=== PATIENT | female | born 1995 | race Caucasian/White ===

== ENCOUNTER 2023-03-17 07:59 | Outpatient (OUT) | payer OTHER, SELFPAY ==
--- NOTE | 2023-03-17 08:26 | CT_ITS ---
[address] [address] Patient Name: TONNY DOWELL MRN: [id number] date: 1995 Sex: F Assigned Patient Location: CT Current Patient Location: CT Accession/Order Number: [id number] Exam Date: 03/17/2023 08:20 Report Date: 03/17/2023 08:53 At the request of: WIL ESCOBAR Procedure: CT cervical spine wo con EXAM: CT cervical spine wo con CLINICAL INDICATION: Cervical Pain M54.2 COMPARISON: None TECHNIQUE: Axial CT images of the cervical spine were obtained without intravenous contrast. Coronal and sagittal reformatted images were also reviewed. Dose reduction techniques were achieved by using automated exposure control and/or adjustment of mA and/or kV according to patient size and/or use of iterative reconstruction technique. FINDINGS: Trauma: No fracture, traumatic malalignment, facet dislocation, or discrete epidural hemorrhage. Alignment: Normal craniocervical and cervicothoracic junctions. Straightening of the physiologic cervical lordosis likely relates at least in part to patient positioning. Vertebral Body Heights: Maintained. Spondylotic Changes: No substantial spondylotic changes. Soft Tissues: Normal. 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 Clear visualized lung apices. Airway is patent. CT/CT cervical spine wo con IMPRESSION: No acute osseous abnormalities in the cervical spine. Electronically authenticated by: ANKUR LEUNG Date: 03/17/2023 08:53
== END 2023-03-17 08:00 | disposition home or self-care (01) ==
LOC: CT 07:59
PROVIDERS: Family Provider Family Medicine; PCP Family Medicine; Visit Provider Family Medicine
DX: M54.2 Cervicalgia (principal)
CPT/HCPCS: 72125

== ENCOUNTER 2023-05-23 10:28 | Emergency (ER) | payer OTHER, SELFPAY ==
--- OUTSIDE RECORDS SUMMARY | 2023-05-23 10:36 | XMS_ITS | CCD ---
Author Name Unknown Address [facility] [place] [id number] Organization [facility] Care Team Providers Care Alcohol Rubber Name Role Phone DAVID MANZANARES Referring Unavailable DAVID MANZANARES Primary Care Unavailable PRATIK HARTMAN Referring Unavailable DAVID MANZANARES Primary Care Unavailable WIL ESCOBAR Admitting Unavailable WIL ESCOBAR Attending Unavailable ADOLFO MENDES Consulting Unavailable WIL ESCOBAR Consulting Unavailable Problems Active Problems Problem Classification Problem Date Documented Da te Episodic/Chronic Nonspecific chest pain (4 sources) Other chest pain; Translations: [OTHER CHEST PAIN] Onset: 12-10-2018 Episodic Other upper respiratory disease (2 sources) Epistaxis; Translations: [Epistaxis] Onset: 06-17-2018 Episodic Past or Other Problems Problem Classification Problem Date Documented Da te Episodic/Chronic Malaise and fatigue (2 sources) Other fatigue; Translations: [Other fatigue] Onset: 03-04-2018 Episodic Results Test Name Value Interpretation Reference Range Facil ity XR CHEST 2 Von 12-10-2018 XR CHEST 2 V Patient: TONNY DOWELL Exam Date: 12/10/2018 : 1995 Gender:F Ordering : DR WIL ESCOBAR M.D. Admission #: [id number] Family : Order #: [id number] CLICK HERE TO VIEW EXAM RADIOLOGY REPORT PROCEDURE: RADIOGRAPH CHEST 2 VIEWS COMPARISON: XR CHEST 2 V, 04/11/2015. INDICATIONS: Acute chest pain FINDINGS: LUNGS: No significant pulmonary parenchymal abnormalities. VASCULATURE: No increased pulmonary vasculature. PLEURA: No pneumothorax, effusion, or pleural thickening. CARDIAC: No cardiomegaly or cardiac silhouette abnormality. MEDIASTINUM: No visible mass or adenopathy. BONES: No fracture or visible bone lesion. OTHER: Negative. CONCLUSION: Normal examination. No significant change has occurred. Dictated by: Adolfo Mendes M.D. on 12/10/2018 at 12:33 Approved by: Adolfo Mendes M.D. on 12/10/2018 at 12:35 Normal [facility] APTTon 06-17-2018 aPTT Coag time (Bld) 27.1 s Normal 21.3-31.3 [facility] Comment on above: Performed By: #### P T, PTT #### [facility] [address] [place] [id number] Worship Director: Paxton Lima MD #### PFA #### [address] [address] Worship Director: Armando Helm MD PTon 06-17-2018 INR Coag RelTime (PPP) 1.0 {INR} Normal [facility] Comment on above: Result Comment: Therapeutic Range: Moderate Anticoagulant Intensity: INR = 2.0-3.0 High Anticoagulant Intensity: INR = 2.5-3.5 Performed By: #### P T, PTT #### [facility] [address] [place] [address] Worship Director: Paxton Lima MD #### PFA #### [place] [phone] Worship Director: Armando Helm MD Prothrombin time (PT) Coag time (PPP) 10.0 s Normal 9.4-12.6 [facility] Comment on above: Performed By: #### P T, PTT #### [facility] [address] [place] [address] Worship Director: Paxton Lima MD #### PFA #### [address] [address] Worship Director: Armando Helm MD Platelet Functionon 06-17-19 19 Collagen/ADP 95 sec Normal 67-112 [facility] Comment on above: Performed By: #### P T, PTT #### [facility] [address] [place] [phone] Worship Director: Paxton Lima MD #### PFA #### [address] [phone] Worship Director: Armando Helm MD Collagen/EPI 122 sec Normal 85-172 [facility] Comment on above: Performed By: #### P T, PTT #### [facility] [address] [place] [address] Worship Director: Paxton Lima MD #### PFA #### [place] [address] Worship Director: Armando Helm MD Interpretation Normal platelet function. If patient clinical history/Physical examination is Normal [facility] Comment on above: Result Comment: posi tive for a bleeding diathesis, recommend repeat testing and/or additional primary hemostasis and/or coagulation studies. PFA results on patients treated with Plavix (clopidogrel) have not been established. Performed By: #### P T, PTT #### [facility] [address] [place] [address] Worship Director: Paxton Lima MD #### PFA #### [address] [address] Worship Director: Armando Helm MD CBC with Diffon 03-04-2018 Abs. Basophil 0.04 k/uL Normal 0.00-0.20 [facility] Comment on above: Performed By: #### C DP, GLUF, TSH #### [address] [address] Abs.Imm.Granulocyte 0.04 k/uL Normal 0.00-0.30 [facility] Comment on above: Performed By: #### C DP, GLUF, TSH #### [facility] [address] [place] [address] Abs.Neutrophil (Seg) 4.48 k/uL Normal 1.80-8.00 [facility] Comment on above: Performed By: #### C DP, GLUF, TSH #### [address] [address] Basophils/100 WBC (Bld) 1 % Normal 0-2 [facility] Comment on above: Performed By: #### C DP, GLUF, TSH #### [address] [address] Eosinophils #/vol (Bld) 0.15 10*3/uL Normal 0.00-0.44 [facility] Comment on above: Performed By: #### C DP, GLUF, TSH #### [address] [address] Eosinophils/100 WBC (Bld) 2 % Normal 1-4 [facility] Comment on above: Performed By: #### C DP, GLUF, TSH #### [address] [address] Erythrocyte distribution width Ratio (RBC) 13.0 % Normal 11.8-14.4 [facility] Comment on above: Performed By: #### C DP, GLUF, TSH #### [facility] [address] [place] [address] Hematocrit Volume Fraction (Bld) 43.0 % Normal 36.3-47.1 [facility] Comment on above: Performed By: #### C DP, GLUF, TSH #### [facility] [address] [place] [address] Hemoglobin mass conc (Bld) 13.3 g/dL Normal 11.9-15.1 [facility] Comment on above: Performed By: #### C DP, GLUF, TSH #### [address] [address] Immature granulocytes #/vol (Bld) 1 % High 0 [facility] Comment on above: Performed By: #### C DP, GLUF, TSH #### [address] [address] Lymphocytes #/vol (Bld) 2.07 10*3/uL Normal 1.20-5.20 [facility] Comment on above: Performed By: #### C DP, GLUF, TSH #### [address] [address] Lymphocytes/100 WBC (Bld) 28 % Normal 25-45 [facility] Comment on above: Performed By: #### C DP, GLUF, TSH #### [address] [address] MCH Entitic mass (RBC) 27.8 pg Normal 25.2-33.5 [facility] Comment on above: Performed By: #### C DP, GLUF, TSH #### [address] [address] MCHC mass conc (RBC) 30.9 g/dL Normal 28.4-34.8 [facility] Comment on above: Performed By: #### C DP, GLUF, TSH #### [address] [address] MCV Entitic volume (RBC) 90.0 fL Normal 82.6-102.9 [facility] Comment on above: Performed By: #### C DP, GLUF, TSH #### [address] [address] Monocytes #/vol (Bld) 0.59 10*3/uL Normal 0.10-1.40 [facility] Comment on above: Performed By: #### C DP, GLUF, TSH #### [address] [address] Monocytes/100 WBC (Bld) 8 % Normal 2-8 [facility] Comment on above: Performed By: #### C DP, GLUF, TSH #### [address] [address] Neutrophil (Seg) 60 % Normal 34-64 [facility] Comment on above: Performed By: #### C DP, GLUF, TSH #### [address] [address] NRBC Automated 0.0 per 100 WBC Normal 0.0 [facility] Comment on above: Performed By: #### C DP, GLUF, TSH #### [address] [address] Platelet mean volume Entitic volume (Bld) 9.2 fL Normal 8.1-13.5 [facility] Comment on above: Performed By: #### C DP, GLUF, TSH #### [address] [address] Platelets #/vol (Bld) 342 10*3/uL Normal 138-453 [facility] Comment on above: Performed By: #### C DP, GLUF, TSH #### [address] [address] RBC #/vol (Bld) 4.78 10*6/uL Normal 3.95-5.11 [facility] Comment on above: Performed By: #### C DP, GLUF, TSH #### [address] [address] WBC #/vol (Bld) 7.4 10*3/uL Normal 4.5-13.5 [facility] Comment on above: Performed By: #### C DP, GLUF, TSH #### [address] [address] Auto Diff Performed NOT REPORTED Normal [facility] Comment on above: Performed By: #### C DP, GLUF, TSH #### [address] [address] Platelets #/vol (Bld) NOT REPORTED Normal [facility] Comment on above: Performed By: #### C DP, GLUF, TSH #### [address] [address] RBC morphology finding Nom (Bld) NOT REPORTED Normal [facility] Comment on above: Performed By: #### C DP, GLUF, TSH #### [address] [address] WBC Morphology NOT REPORTED Normal [facility] Comment on above: Performed By: #### C DP, GLUF, TSH #### [address] [address] Glucose, Fastingon 8 Glucose mass conc 85 mg/dL Normal 70-99 [facility] Comment on above: Performed By: #### C DP, GLUF, TSH #### [address] [address] Thyroid Stim. Horm.on 2017 Thyrotropin Qn 1.56 m[IU]/L Normal 0.30-5.00 [facility] Comment on above: Performed By: #### C DP, GLUF, TSH #### [address] [address] Encounters Encounter Date Encounter Type Care Provider Facility Start: 12-10-2018 End: 12-11-2018 Patient encounter procedure WIL ESCOBAR Facility: Start: 06-17-2018 End: 06-18-2018 Patient encounter procedure PRATIK HARTMAN [facility] Start: 03-04-2018 End: 03-05-2018 [facility] Procedures Date Procedure Procedure Detail Performing Clinician Start: 06-17-2018 PLATELET FUNCTION TEST DAVID MANZANARES Start: 06-17-2018 Prothrombin time [facility] [place] Start: 06-17-2018 Thromboplastin time partial plasma/whole blood DAVID MANZANARES Start: 03-04-2018 Assay of thyroid sti mulating hormone tsh DAVID MANZANARES Start: 03-04-2018 Blood count complete auto&auto difrntl wbc DAVID MANZANARES Start: 03-04-2018 GLUCOSE, FASTING [place] Payers Date Payer Category Payer Unknown [id number] 1995 Unknown [id number] 1995 Unknown [id number] 1957 Private Health Insurance [id number] Summary Purpose Family History No Family History Records FoundNo Family History Records Found Advance Directives No Advanced Directives Records FoundNo Advanced Directives Records Found Additional Source Comments INFORMATION SOURCE (unrecogn ized section and content) DATE CREATED AUTHOR 07/01/2018 [facility] DATE CREATED AUTHOR AUTHOR'S MAINIZ ATION 12/19/2018 [facility] FOR RECORDS PERTAINING TO PATIENTS WHO ARE OR HAVE BEEN ENROLLED IN A CHEMICAL DEPENDENCY/SUBSTANCEABUSE PROGRAM, SOME INFORMATION MAY BE OMITTED. This clinical summary was aggregated from multiple sources. Caution should be exercised in using it in the provision of clinical care. This summary normalizes information from multiple sources, and as a consequence, information in this document may materially change the coding, format and clinical context of patient data. In addition, data may be omitted in some cases. CLINICAL DECISIONS SHOULD BE BASED ON THE PRIMARY CLINICAL RECORDS. [email or web address] provides no warranty or guarantee of the accuracy or completeness of information in this document.
[2023-05-23 10:37] VITALS: BP 135/90; PULSE 103; RESP 16; TEMP 37.2; O2SAT 99; BMI 29.6
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
== END 2023-05-23 12:10 | disposition home or self-care (01) ==
PROVIDERS: Emergency Provider Emergency Medicine Emergency Medical Services; Family Provider Family Medicine; PCP Internal Medicine
DX: S06.0X0A Concussion without loss of consciousness, initial encounter (principal); V89.2XXA Person injured in unspecified motor-vehicle accident, traffic, initial encounter
CPT/HCPCS: 70450; 99284

== ENCOUNTER 2023-08-14 06:54 | Outpatient (OUT) | payer OTHER, SELFPAY ==
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
[2023-08-14 07:23] LABS: Bilirubin Urine NEGATIVE (NEGATIVE); Blood Urine NEGATIVE (NEGATIVE); Clarity Urine CLEAR (CLEAR); Color Urine YELLOW (YELLOW); Glucose Urine UA NEGATIVE (NEGATIVE); Ketones Urine NEGATIVE (NEGATIVE); Leukocyte Esterase Urine NEGATIVE (NEGATIVE); Nitrite Urine NEGATIVE (NEGATIVE); Protein Urine NEGATIVE (NEG/TRACE); Specific Gravity Urine >=1.030 (1.005-1.025); Urobilinogen Urine 0.2 EU/dL (0.2-1.0); pH Urine 5.5 (5.0-9.0)
--- NOTE | 2023-08-14 07:36 | XR_ITS ---
The [place] [id number] Patient Name: TONNY PARKER MRN: [id number] date: 1995 Sex: F Assigned Patient Location: LAB Current Patient Location: LAB Accession/Order Number: [id number] Exam Date: 08/14/2023 07:25 Report Date: 08/14/2023 08:44 At the request of: DAVID MANZANARES Procedure: XR lumbar spine 6V w bending EXAMINATION: XR lumbar spine 6V w bending HISTORY: low back pain M54.50 COMPARISON: No relevant comparison available. FINDINGS: BONES: No significant spondylosis, scoliosis, fracture, or visible bony lesion. DISC SPACES: Slight narrowing at L5-S1. PARASPINOUS: Negative. No paraspinous abnormality is seen. OTHER: Negative. XR/XR lumbar spine 6V w bending IMPRESSION: 1. Minimal intervertebral disc space narrowing at L5-S1. Otherwise unremarkable lumbar spine. Electronically authenticated by: PETRA LOPEZ Date: 08/14/2023 08:44
[2023-08-14 07:41] LABS: Basophils Percent Auto 0.4 % (0.2-2.0); Eosinophils Absolute Auto 0.1 10^3/uL (0.0-0.7); Eosinophils Percent Auto 0.9 % (0.9-7.0); Hematocrit 41.1 % (36.0-48.0); Hemoglobin 13.1 g/dL (12.0-16.0); Immature Granulocytes Abs Auto 0.03 10^3/uL (0.00-0.03); Immature Granulocytes Pct Auto 0.4 % (0.0-0.5); Mean Corpuscular HGB Conc 31.9 g/dL (29.9-35.2); Mean Corpuscular Volume 91.1 fL (81.0-99.0); Mean Platelet Volume 9.7 fL (9.5-13.5); Monocytes Absolute Auto 0.5 10^3/uL (0.3-0.8); Monocytes Percent Auto 6.4 % (1.7-12.0); Neutrophils Absolute Auto 5.4 10^3/uL (1.4-6.5); Neutrophils Percent Auto 66.9 % (43.0-75.0); Platelet Count 349 10^3/uL (150-450); Red Blood Count 4.51 10^6/uL (4.20-5.40); White Blood Count 8.1 10^3/uL (4.0-11.0)
[2023-08-14 09:12] LABS: Alanine Aminotransferase 18 U/L (14-59); Albumin Globulin Ratio 0.9; Albumin Level 3.5 g/dL (3.4-5.0); Alkaline Phosphatase 69 U/L (46-116); Aspartate Amino Transferase 11 U/L (15-37); BUN Creatinine Ratio 17.1; Bilirubin Total 0.4 mg/dL (0.2-1.0); C Reactive Protein 0.95 mg/dL (<=0.50); Calcium 8.8 mg/dL (8.5-10.1); Carbon Dioxide 27.9 mmol/L (21.0-32.0); Chloride 104 mmol/L (98-107); Chol HDL Ratio 2.7; Cholesterol 169 mg/dL (<=200); Estimated GFR (African America >60 (>=60); Estimated GFR (Non-African Ame >60 (>=60); Globulin 3.8 g/dL; Glucose 97 mg/dL (74-106); HDL Cholesterol 62 mg/dL (40-60); Potassium 3.9 mmol/L (3.5-5.1); Sodium 142 mmol/L (136-145); Thyroid Stimulating Hormone 1.852 uIU/mL (0.358-3.740); Total Protein 7.3 g/dL (6.4-8.2); Triglycerides 47 mg/dL (<=150); VLDL CHOLESTEROL 9.4 mg/dL
[2023-08-15 06:09] LABS: Rheumatoid Factor (RF) <10.0 IU/mL (<14.0)
[2023-08-15 12:10] LABS: Anti-CCP Ab, IgG/IgA 1 units (0-19)
[2023-08-15 13:08] LABS: ANA Direct Negative (Negative)
== END 2023-08-14 06:55 | disposition home or self-care (01) ==
LOC: LAB 06:57
PROVIDERS: Family Provider Family Medicine; PCP Internal Medicine; Visit Provider Internal Medicine
DX: Z00.00 Encounter for general adult medical examination without abnormal findings (principal); M54.50 Low back pain, unspecified; M06.4 Inflammatory polyarthropathy; R53.83 Other fatigue
CPT/HCPCS: 36415; 72114; 80053; 80061; 81003; 82306; 82607; 84443; 85025; 86038; 86140; 86200; 86431

== ENCOUNTER 2023-11-07 11:07 | Outpatient (OUT) | payer OTHER, SELFPAY ==
--- NOTE | 2023-11-07 | US_ITS ---
The [address] [address] Patient Name: TONNY PARKER MRN: [id number] date: 1995 Sex: F Assigned Patient Location: US Current Patient Location: US Accession/Order Number: [id number] Exam Date: 11/07/2023 12:02 Report Date: 11/07/2023 13:20 At the request of: DAVID MANZANARES Procedure: US right upper quadrant EXAM: US right upper quadrant HISTORY: R10.11, Right upper quadrant abdominal pain COMPARISON: None. TECHNIQUE: Grayscale and color ultrasound FINDINGS: The liver is normal in size, contour and echotexture measuring 14.4 cm in length. No focal hepatic mass. Hepatopedal flow in the main portal vein with a velocity of 20 cm/s. The gallbladder is normal in size. The wall measures 3.6 mm, thickened. Positive sonographic Escalante sign. Common bile duct measures 3.1 mm. The visualized pancreas is normal The right kidney is normal measuring 2.2 x 5.1 x 4.8 cm Free fluid Call results initiated through operations US/US right upper quadrant IMPRESSION: Mildly gallbladder wall with positive sonographic Escalante sign. Consider cholecystitis Electronically authenticated by: LAINE RIDER Date: 11/07/2023 13:20
--- OUTSIDE RECORDS SUMMARY | 2023-11-07 11:27 | XMS_ITS | CCD ---
Author Organization [facility] Care Team Providers Care Caseworker Protective Services Name Role Phone PETE CADENA Referring Unavailable PETE CADENA Primary Care Unavailable PRATIK HARTMAN Referring Unavailable PETE CADENA Primary Care Unavailable WIL ESCOBAR Admitting Unavailable WIL ESCOBAR Attending Unavailable ADOLFO MENDES Consulting Unavailable WIL ESCOBAR Consulting Unavailable Pete Cadena Unavailable NATACHA CASTILLO Attending Unavailable JESSICA MARR Attending Unavailable NO PCP, NO PCP Primary Care Unavailable NO PCP, NO PCP Primary Care Unavailable ERIK GIORDANO Attending UnavailIESHA Jenkins Consulting Unavailable IESHA ROACH Admitting Unavailable CATRACHITO PORTILLO Referring Unavailable NO PCP, NO PCP Primary Care Unavailable KM ALMAZAN Attending Unavailable NO PCP, NO PCP Primary Care Unavailable IESHA ROACH Attending Unavailable NO PCP, NO PCP Primary Care Unavailable PATI CHANDRA Referring Unavailable NO PCP, NO PCP Primary Care Unavailable NAIF, NSEHNIITOOH A Attending Unavailable Allergies Allergy Classification Reported Allergen(s) Allergy Type Date of Onset Reaction(s) Facility (2 sources) Vancomycin; Translations: [VANCOMYCIN] Drug Allergy 09-10-2023 [facility] Rep[facility] Medications Current Medications Medication Drug Class(es) Dates [...] / neomycin 3.5 mg/ml / polymyxin b 88059 unt/ml otic suspension (1 source) Aminoglycoside Antibacterial, Polymyxin-class Antibacterial, Corticosteroid Start: 06-08-2023 Neomycin-Polymyxin- HC [id number] 4 drops into affected ear Otic Three [...] Classification Problem Date Documented Da te Episodic/Chronic Abdominal pain (2 sources) Epigastric pain; Translations: [Epigastric pain] Onset: 10-30-2023 Episodic Genitourinary symptoms and ill-defined conditions (1 source) Urgency of urination; Translations: [Urgency of urination] Onset: 09-07-2023 Episodic Malaise and fatigue (3 sources) Other fatigue; Translations: [Fatigue] Onset: 03-04-2018 08-13-2023 Episodic Nonspecific chest pain (4 sources) Other chest pain; Translations: [OTHER CHEST PAIN] Onset: 12-10-2018 Episodic Other ear and sense organ disorders (1 source) Acute contact otitis externa, right ear Episodic Other female genital disorders (1 source) Other specified noninflammatory disorders of vagina; Translations: [Other specified noninflammatory disorders of vagina] Onset: 09-07-2023 Episodic Other gastrointestinal disorders (1 source) Diarrhea, unspecified; Translations: [Diarrhea, unspecified] Onset: 09-26-2023 Episodic Other nervous system disorders (1 source) Other acute postprocedural pain; Translations: [Other acute postprocedural pain] Onset: 09-09-2023 Episodic Other skin disorders (1 source) Skin problem Onset: 09-07-2023 Episodic Other upper respiratory disease (2 sources) Epistaxis; Translations: [Epistaxis] Onset: 06-17-2018 Episodic Rheumatoid arthritis and related disease (1 source) Inflammatory polyarthropathy; 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 Skin and subcutaneous tissue infections (3 sources) Cutaneous abscess of buttock; Translations: [Cellulitis of buttock] Onset: 09-07-2023 Episodic Spondylosis; intervertebral disc disorders; other back problems (1 source) Low back pain; Translations: [Low back pain] 08-13-2023 Episodic Sprains and strains (1 source) Strain of other muscles, fascia and tendons at shoulder and upper arm level, right arm, initial encounter Episodic Unclassified (1 source) Lump on body Onset: 09-07-2023 Results Test Name Value Interpretation Reference Range Facil ity BETA HCG QUALITATIVEon 10-29 HCG QUALITATIVE, SERUM Negative Normal Negative [facility] Comment on above: Result Comment: Test ing qualitatively detects the presence of hCG in serum specimens at a sensitivivity of 25mIU/mL. Performed By: #### C BCD #### [facility] [address] [place] [address] 1 CBC WITH DIFFERENTIALon 10-11 Erythrocyte distribution width (RBC) [Ratio] 12.2 % Normal 11.0-15.0 [facility] Comment on above: Performed By: #### C BCD #### [facility]) [address] [place] [address] 1 Hematocrit (Bld) [Volume fraction] 40.7 % Normal 35.0-46.0 [facility] Comment on above: Performed By: #### C BCD #### [facility]) [address] [place] [address] 1 Hemoglobin (Bld) [Mass/Vol] 13.4 g/dL Normal 11.7-15.5 [facility] Comment on above: Performed By: #### C BCD #### [facility]) [address] [place] [address] 1 MCH (RBC) [Entitic mass] 29.4 pg Normal 27.0-33.0 [facility] Comment on above: Performed By: #### C BCD #### [facility]) [address] [place] [address] 1 MCV (RBC) [Entitic vol] 89.3 fL Normal 80.0-100.0 [facility] Comment on above: Performed By: #### C BCD #### [facility]) [address] [place] [address] 1 MEAN CORPUSCULAR HEMOGLOBIN CONC 32.9 g/dL Normal 30.0-36.0 [facility] Comment on above: Performed By: #### C BCD #### [facility]) [address] [place] [address] 1 Platelet mean volume (Bld) [Entitic vol] 9.5 fL Normal 9.0-13.0 [facility] Comment on above: Performed By: #### C BCD #### [facility]) [address] [place] [address] 1 Platelets (Bld) [#/Vol] 343 10*3/uL Normal 140-400 [facility] Comment on above: Performed By: #### C BCD #### [facility]) [address] [place] [address] 1 RBC (Bld) [#/Vol] 4.56 10*6/uL Normal 3.80-5.10 [facility] [place] Comment on above: Performed By: #### C BCD #### [facility]) [address] [place] [address] 1 WBC (Bld) [#/Vol] 8.18 10*3/uL Normal 3.80-10.80 [facility] Comment on above: Performed By: #### C BCD #### [facility]) [address] [place] [address] 1 COMPREHENSIVE METABOLIC PANE Sriram 10-30-2023 A/G RATIO 1.4 Normal 1.0-2.1 [facility] Comment on above: Performed By: #### M ETAPNL #### [facility]) [address] [place] [address] 1 Albumin [Mass/Vol] 4.3 g/dL Normal 3.5-5.0 [facility] Comment on above: Performed By: #### M ETAPNL #### [facility]) [address] [place] [address] 1 ALP [Catalytic activity/Vol] 57 U/L Normal 33-140 [facility] Comment on above: Performed By: #### M ETAPNL #### [facility]) [address] [place] [address] 1 ALT [Catalytic activity/Vol] 8 U/L Normal 0-40 [facility] Comment on above: Performed By: #### M ETAPNL #### [facility]) [address] [place] [address] 1 Anion gap [Moles/Vol] 9 mmol/L Normal 5-13 [facility] Comment on above: Result Comment: Anio n gap calculation does not include potassium (K+) value. Performed By: #### M ETAPNL #### [facility]) [address] [place] [address] 1 AST [Catalytic activity/Vol] 17 U/L Normal 0-30 [facility] Comment on above: Performed By: #### M ETAPNL #### [facility]) [address] [place] [address] 1 Bilirubin [Mass/Vol] 0.6 mg/dL Normal 0.2-1.2 [facility] Comment on above: Performed By: #### M ETAPNL #### [facility]) [address] [place] [address] 1 BUN / CREAT RATIO 11 Normal [facility] Comment on above: Performed By: #### M ETAPNL #### [facility]) [address] [place] [address] 1 Calcium [Mass/Vol] 9.2 mg/dL Normal 8.5-10.5 [facility] Comment on above: Performed By: #### M ETAPNL #### [facility]) [address] [place] [address] 1 Chloride [Moles/Vol] 105 mmol/L Normal 98-110 [facility] Comment on above: Performed By: #### M ETAPNL #### [facility]) [address] [place] [address] 1 CO2 [Moles/Vol] 23 mmol/L Normal 22-29 [facility] Comment on above: Performed By: #### M ETAPNL #### [facility]) [address] [place] [address] 1 Creatinine [Mass/Vol] 0.80 mg/dL Normal 0.50-1.20 [facility] Comment on above: Performed By: #### M ETAPNL #### [facility]) [address] [place] [address] 1 EGFR CKD-EPI 2020 104 See Note Normal [facility] [place] Comment on above: Result Comment: eGFR calculated with 2020 CKD-EPI equation using creatinine, patient's age and gender. Other factors, especially muscle mass, may affect accuracy and need to be considered. Patient values should be interpreted as a trend. The reference interval is >60 mL/min/1.73m2. Performed By: #### M ETAPNL #### [facility]) [address] [place] [address] 1 Globulin (S) [Mass/Vol] 3.0 g/dL Normal 2.0-3.7 [facility] Comment on above: Performed By: #### M ETAPNL #### [facility]) [address] [place] [address] 1 Glucose [Mass/Vol] 78 mg/dL Normal 71-99 [facility] Comment on above: Result Comment: Refe rence range (71-99 mg/dL) refers only to fasting samples, and does not apply to non-fasting samples. Performed By: #### M ETAPNL #### [facility]) [address] [place] [address] 1 Potassium [Moles/Vol] 3.8 mmol/L Normal 3.5-5.1 [facility] Comment on above: Performed By: #### M ETAPNL #### [facility]) [address] [place] [address] 1 Protein [Mass/Vol] 7.3 g/dL Normal 6.0-8.0 [facility] Comment on above: Performed By: #### M ETAPNL #### [facility]) [address] [place] [address] 1 Sodium [Moles/Vol] 137 mmol/L Normal 135-146 [facility] Comment on above: Performed By: #### M ETAPNL #### [facility]) [address] [place] [address] 1 Urea nitrogen [Mass/Vol] 9 mg/dL Normal 7-25 [facility] Comment on above: Performed By: #### M ETAPNL #### [facility]) [address] [place] [address] 1 CT-ABDOMEN AND PELVIS W CONT on 10-30-2023 CT-ABDOMEN AND PELVIS W CONT EXAM: CT-ABDOMEN & PELVIS W CONT INDICATION: epigastric pain, COMPARISON: None TECHNIQUE: CT abdomen and pelvis was performed with contrast according to standard protocol. Axial images and multiplanar reformatted images are provided for review. Up-to-date CT equipment and radiation dose reduction techniques were employed. IV Contrast: 80 cc [id number] Oral Contrast: No. FINDINGS: The visualized lung bases are clear. The heart size is normal without pericardial effusion. The liver enhances homogenously. No focal intrahepatic lesions are seen. The gallbladder is normal without evidence of gallstones or gallbladder wall thickening. There is no intrahepatic or extrahepatic biliary ductal dilatation. The spleen enhances homogenously. The pancreas is normal. The adrenal glands are normal. The kidneys enhance symmetrically bilaterally. There is no hydronephrosis or hydroureter. The stomach is normal. The small bowel and large bowel are normal in course and caliber. There is no evidence of bowel wall thickening or bowel obstruction. There is no evidence of appendicitis. No free intraperitoneal air is seen. No lymphadenopathy is seen. The abdominal aorta is normal in course and caliber. The remaining enhanced abdominal vascular structures are normal. The urinary bladder appears normal. The uterus contains an intrauterine device. There is no free fluid in the pelvis. Bone windows demonstrate no suspicious lytic or blastic lesions. IMPRESSION: IMPRESSION: 1. No acute abnormality in the abdomen and pelvis. Signed By: Connor Donahue MD [facility] DIFFERENTIALon 10-30-2023 BASOPHILS ABSOLUTE COUNT 0.05 10*3/uL Normal 0.00-0.20 [facility] Comment on above: Performed By: #### C BCD #### [facility]) [address] [place] [address] 1 Basophils/100 WBC (Bld) 0.6 % Normal [facility] Comment on above: Performed By: #### C BCD #### [facility]) [address] [place] [address] 1 Eosinophils (Bld) [#/Vol] 0.08 10*3/uL Normal 0.00-0.50 [facility] Comment on above: Performed By: #### C BCD #### [facility]) [address] [place] [address] 1 Eosinophils/100 WBC (Bld) 1.0 % Normal [facility] Comment on above: Performed By: #### C BCD #### [facility]) [address] [place] [address] 1 Immature granulocytes (Bld) [#/Vol] 0.06 10*3/uL Normal 0.00-0.10 [facility] Comment on above: Performed By: #### C BCD #### [facility] ([facility]) [address] [place] [address] 1 Immature granulocytes/100 WBC (Bld) 0.7 % Normal 0.0-2.0 [facility] Comment on above: Performed By: #### C BCD #### [facility] ([facility]) [address] [place] [address] 1 Lymphocytes (Bld) [#/Vol] 2.12 10*3/uL Normal 0.80-3.90 [facility] Comment on above: Performed By: #### C BCD #### [facility]) [address] [place] [address] 1 Lymphocytes/100 WBC (Bld) 25.9 % Normal [facility] Comment on above: Performed By: #### C BCD #### [facility]) [address] [place] [address] 1 Monocytes (Bld) [#/Vol] 0.58 10*3/uL Normal 0.20-0.90 [facility] Comment on above: Performed By: #### C BCD #### [facility] ([facility]) [address] [place] [address] 1 Monocytes/100 WBC (Bld) 7.1 % Normal [facility] Comment on above: Performed By: #### C BCD #### [facility]) [address] [place] [address] 1 NEUTROPHILS ABSOLUTE COUNT 5.29 10*3/uL Normal 1.50-7.80 [facility] Comment on above: Performed By: #### C BCD #### [facility]) [address] [place] [address] 1 Neutrophils/100 WBC (Bld) 64.7 % Normal [facility] Comment on above: Performed By: #### C BCD #### [facility]) [address] [place] [address] 1 NUCLEATED RED BLOOD CELLS 0 /100 WBC Normal 0-0 [facility] Comment on above: Performed By: #### C BCD #### [facility]) [address] [place] [address] 1 ED Noteon 10-30-[address] Disla at bedside Normal [facility] [place] ED Note Placed on 2L nasal cannula Normal [facility] ED Note --Patient to cat sca n with ticket to ride at this time for ordered test. --Patient travels with safety features in place with bed in low position and side rails up X 2. Normal [facility] ED Note Dr. Disla at bedside Normal [facility] [place] ED Prov Noteon 10-30-2023 ED Prov Note Primary Care Physician: None, None Attending Physician: No att. providers found CHIEF COMPLAINT: Chief Complaint Patient presents with Abdominal Pain HPI: Vivian Kwan is a 28 y.o. female with no significant history who presents accompanied by her complaining of epigastric pain. Patient states that she was in a way driving from [facility] to [facility] in [place]. On the way here she developed significant abdominal pain. Pain is around the epigastrium. Patient denies any history of abdominal pain in the past. She is concerned that this might be her gallbladder. She denies any alcohol use. No fevers chills but admits to nausea without vomiting. Information was obtained from patient. Past Medical History: Diagnosis Date Urinary tract infection, site not specified Past Surgical History: Procedure Laterality Date HX NASAL/SINUS ENDOSCOPY HX PELVIC LAPAROSCOPY HX SHOULDER SURGERY No family history on file. Social History Socioeconomic History Marital status: Single Tobacco Use Smoking status: Never Smokeless tobacco: Never Substance and Sexual Activity Alcohol use: Yes Comment: soc Drug use: Not Currently REVIEW OF SYSTEMS: 10 total systems reviewed and found to be negative unless otherwise noted in HPI PHYSICAL EXAM: BP 109/58 Pulse 76 Temp 98.5 ?F (36.9 ?C) (Oral) Resp 18 SpO2 100% Physical Exam Vitals and nursing note reviewed. Constitutional: General: Pt no in acute distress. Appearance: Pt is well appearing. Pt is not diaphoretic. HENT: Head: Normocephalic and atraumatic. Right Ear: Tympanic membrane normal. Left Ear: Tympanic membrane normal. Nose: Nose normal. Mouth/Throat: Mouth: Mucous membranes are moist. Pharynx: Oropharynx is clear. Eyes: Extraocular Movements: Extraocular movements intact. Conjunctiva/sclera: Conjunctivae normal. Pupils: Pupils are equal, round, and reactive to light. Cardiovascular: Rate and Rhythm: Normal rate and regular rhythm. Pulses: Normal pulses. Heart sounds: Normal heart sounds. No murmur heard. No gallop. Pulmonary: Effort: Pulmonary effort is normal. Breath sounds: Normal breath sounds. no Wheezing Abdominal: General: Bowel sounds are normal. There is no distension. Palpations: Abdomen is soft. Tenderness: There is abdominal tenderness. There is no guarding or rebound. Musculoskeletal: General: No tenderness. Normal range of motion. Cervical back: Normal range of motion and neck supple. Bi legs: no swelling, no deformity or bony tenderness. Normal pulse. Skin: General: Skin is warm and dry. Capillary Refill: Capillary refill takes less than 2 seconds. Findings: No bruising or erythema. Neurological: General: No focal deficit present. Mental Status: Patient is alert and oriented to person, place, and time. Gait: Gait normal. DIAGNOSTIC RESULTS: LABS: Labs Reviewed LIPASE - Abnormal; Notable for the following components: Result Value Lipase 9 (*) All other components within normal limits POC IONIZED CALCIUM - Abnormal; Notable for the following components: POC Ionized Calcium 4.3 (*) All other components within normal limits POC URINALYSIS - Abnormal; Notable for the following components: Leukocyte esterase UA Small (*) Ketones, UA 80 (*) All other components within normal limits POC BNP ISTAT - Abnormal; Notable for the following components: POC BNP ISTAT <15 (*) All other components within normal limits CBC WITH DIFFERENTIAL COMPREHENSIVE METABOLIC PANEL BETA HCG QUALITATIVE DIFFERENTIAL POC BETA HCG, QUALITATIVE POC SODIUM POC POTASSIUM POC GLUCOSE POC BUN POC CREATININE POC CHLORIDE POC TCO2 POC ANION POC TROP ISTAT All other labs were withinnormal range or not returned as of this dictation RADIOLOGY: Non-plain film images such as CT, Ultrasoundand MRI are read by the radiologist. Plain radiographic images are visualized and preliminarily interpreted by the emergency physician with the below findings: CT-ABDOMEN & PELVIS W CONT Final Result by Interface, Incoming Radiology Results (10/29 2153) IMPRESSION: 1. No acute abnormality in the abdomen and pelvis. Signed By: Connor Donahue MD No results found. ED BEDSIDE ULTRASOUND: Performed by ED Physician - none EMERGENCY DEPARTMENT COURSE and DIFFERENTIAL DIAGNOSIS/MDM: PMH, Surgical Hx, FH, Social Hx reviewed by myself (ETOH usage, Tobacco usage, Drug usage reviewed by myself, no pertinent Hx)- No Pertinent History Old records were reviewed by me EKG: None MEDICATIONS GIVEN: Medications lidocaine (XYLOCAINE) 15 mL, alum-mag hydroxide-simeth (MINTOX MAX) 400-400-40 mg/5 mL 30 mL GI Cocktail (45 mL Oral Given 10/30/232108) fentaNYL (Sublimaze) 50 mcg/mL injection 50 mcg (50 mcg Intravenous Given 10/30/232099) ketorolac (TORADOL) injection 15 mg (15 mg Intravenous Given 10/30/232134) ondansetron (PF) (ZOFRAN) injection 4 mg (4 mg Intravenous Given 10/29 (more content not included)... Normal [facility] ED Triage Noon 10-30-2023 ED Triage No Pt presents to the [facility] abd pain that radiates to back on right side X Friday, worsening today. +nausea/dizziness Normal [facility] LIPASEon 10-30-2023 Lipase [Catalytic activity/Vol] 9 U/L Low 10- [facility] Comment on above: Performed By: #### L IP #### [facility]) [address] [place] [address] 1 POC ANIONon 10-30-2023 Anion gap [Moles/Vol] 13 mmol/L Normal - [facility] Comment on above: Result Comment: Anio n gap calculation includes potassium (K+) value. Performed By: #### C BCD #### [facility]) [address] [place] [address] 1 POC BETA HCG, QUALITATIVEon 10-30-2023 Beta HCG ( test) Ql (U) Negative Normal Negative [facility] Comment on above: Performed By: #### L IP #### [facility]) [address] [place] [address] 1 POC BNP ISTATon 10-30-2023 POC BNP ISTAT <15 Low 15-100 [facility] Comment on above: Performed By: #### C BCD #### [facility]) [address] [place] [address] 1 POC BUNon 10-30-2023 Urea nitrogen [Mass/Vol] 9 mg/dL Normal 7-25 [facility] Comment on above: Performed By: #### C BCD #### [facility]) [address] [place] [address] 1 POC CHLORIDEon 10-30-2023 Chloride [Moles/Vol] 103 mmol/L Normal 98-110 [facility] Comment on above: Performed By: #### P OCCL #### [facility]) [address] [place] [address] 1 POC CREATININEon 10-30-2023 Creatinine [Mass/Vol] 0.8 mg/dL Normal 0.5-1.2 [facility] Comment on above: Performed By: #### L IP #### [facility]) [address] [place] [address] 1 POC GLUCOSEon 10-30-2023 Glucose [Mass/Vol] 80 mg/dL Normal 71-99 [facility] Comment on above: Performed By: #### L IP #### [facility]) [address] [place] [address] 1 POC IONIZED CALCIUMon 2023 POC IONIZED CALCIUM 4.3 mg/dL Low 4.5-5.3 [facility] [place] Comment on above: Performed By: #### P OCICA #### [facility]) [address] [place] [address] 1 POC POTASSIUMon 10-30-2023 Potassium [Moles/Vol] 3.7 mmol/L Normal 3.5-5.1 [facility] Comment on above: Performed By: #### L IP #### [facility]) [address] [place] [address] 1 POC SODIUMon 10-30-2023 Sodium [Moles/Vol] 138 mmol/L Normal 135-146 [facility] Comment on above: Performed By: #### L IP #### [facility]) [address] [place] [address] 1 POC TCO2on 10-30-2023 CO2 [Moles/Vol] 27 mmol/L Normal 25-29 [facility] Comment on above: Performed By: #### L IP #### [facility]) [address] [place] [address] 1 POC TROP ISTATon 10-30-2023 POC TROPONIN ISTAT <0.07 Normal 0.00-0.08 [facility] Comment on above: Result Comment: Poin t of Care result varies from laboratory result and should not be compared. Performed By: #### C BCD #### [facility] ([facility]) [address] [place] [address] 1 POC URINALYSISon 10-30-2023 BILIRUBIN UA Negative Normal Negative [facility] Comment on above: Performed By: #### L IP #### [facility]) [address] [place] [address] 1 BLOOD URINE, PUA Negative Normal Negative [facility] Comment on above: Performed By: #### L IP #### [facility]) [address] [place] [address] 1 GLUCOSE URINE, UA Negative Normal Negative [facility] Comment on above: Performed By: #### L IP #### [facility]) [address] [place] [address] 1 KETONES UA 80 mg/dL Abnormal Negative [facility] Comment on above: Performed By: #### L IP #### [facility]) [address] [place] [address] 1 LEUKOCYTE ESTERASE URINE, UA Small Abnormal Negative [facility] (Formerly [facility]) Comment on above: Performed By: #### L IP #### [facility]) [address] [place] [address] 1 NITRITE, UA Negative Normal Negative [facility] Comment on above: Performed By: #### L IP #### [facility] [address] [place] [address] 1 PH, URINE 5.5 Normal 5.0-8.0 [facility] Comment on above: Performed By: #### L IP #### [facility]) [address] [place] [address] 1 PROTEIN, UA Negative Normal Negative [facility] Comment on above: Performed By: #### L IP #### [facility] [address] [place] [address] 1 SPECIFIC GRAVITY, UA 1.025 Normal 1.005-1.035 [facility] Comment on above: Performed By: #### L IP #### [facility]) [address] [place] [address] 1 UROBILINOGEN, UA 0.2 EU/dL Normal 0.2-1.0 [facility] Comment on above: Performed By: #### L IP #### [facility]) [address] [place] [address] 1 BASIC METABOLIC PANLon 09-11 Anion gap [Moles/Vol] 7 mmol/L Normal 5-15 [facility] Comment on above: Performed By: #### V PPCR #### [facility] ([id number]) [address] [facility], [address] [place] [address] Calcium [Mass/Vol] 8.2 mg/dL Low 8.5-10.5 [facility] Comment on above: Performed By: #### V PPCR #### [facility] ([id number]) [address] [facility], [address] [place] [address] Chloride [Moles/Vol] 103 mmol/L Normal 98-109 [facility] Comment on above: Performed By: #### V PPCR #### [facility] ([id number]) [address] [place] [address] CO2 [Moles/Vol] 29 mmol/L Normal 22-32 [facility] Comment on above: Performed By: #### V PPCR #### [facility] ([id number]) [address], [address] [place] [address] Creatinine [Mass/Vol] 0.75 mg/dL Normal 0.40-1.00 [facility] Comment on above: Result Comment: METH OD TRACEABLE TO IDMS STANDARD Performed By: #### V PPCR #### [facility] ([id number]) [address], [address] [place] [address] eGFR (CKD-EPI) NON-RACE DEPENDENT >90 Normal >59 [facility] Comment on above: Result Comment: Reported eGFR is based on the CKD-EPI 2020 equation that does not use a race coefficient. Performed By: #### V PPCR #### [facility] ([id number]) [address], [address] [place] [address] Glucose [Mass/Vol] 91 mg/dL Normal 65-99 [facility] Comment on above: Performed By: #### V PPCR #### [facility] ([id number]) [address], [address] [place] [address] Potassium [Moles/Vol] 4.0 mmol/L Normal 3.5-5.0 [facility] Comment on above: Performed By: #### V PPCR #### [facility] ([id number]) [address], [address] [place] [address] Sodium [Moles/Vol] 139 mmol/L Normal 134-146 [facility] Comment on above: Performed By: #### V PPCR #### [facility] ([id number]) [address], [address] [place] [address] Urea nitrogen [Mass/Vol] 8 mg/dL Normal 5-23 [facility] Comment on above: Performed By: #### V PPCR #### [facility] ([id number]) [address], [address] [place] [address] COMPLETE BLOOD COUNTon 09-11 Erythrocyte distribution width (RBC) [Ratio] 13.2 % Normal 11.5-15.0 [facility] Comment on above: Performed By: #### V PPCR #### [facility] ([id number]) [address], [address] [place] [address] Hematocrit (Bld) [Volume fraction] 33.8 % Low 35-47 [facility] Comment on above: Performed By: #### V PPCR #### [facility] ([id number]) [address], [address] [place] [address] Hemoglobin (Bld) [Mass/Vol] 11.4 g/dL Low 11.7-15.5 [facility] Comment on above: Performed By: #### V PPCR #### [facility] ([id number]) [address], [address] [place] [address] MCH (RBC) [Entitic mass] 29.6 pg Normal 27-34 [facility] Comment on above: Performed By: #### V PPCR #### [facility] ([id number]) [address], [address] [place] [address] MCHC (RBC) [Mass/Vol] 33.7 g/dL Normal 32-36 [facility] Comment on above: Performed By: #### V PPCR #### [facility] ([id number]) [address], [address] [place] [address] MCV (RBC) [Entitic vol] 88 fL Normal 80-100 [facility] Comment on above: Performed By: #### V PPCR #### [facility] ([id number]) [address], [address] [place] [address] Platelet mean volume (Bld) [Entitic vol] 7.4 fL Normal 7-12 [facility] Comment on above: Performed By: #### V PPCR #### [facility] ([id number]) [address] [address] [place] [address] Platelets (Bld) [#/Vol] 280 10*3/uL Normal 150-450 [facility] Comment on above: Performed By: #### V PPCR #### [facility] ([id number]) [address] [address] RBC COUNT 3.86 X10E12/L Normal 3.80-5.20 [facility] Comment on above: Performed By: #### V PPCR #### [facility] ([id number]) [address] [address] WBC (Bld) [#/Vol] 6.1 10*3/uL Normal 4.0-11.0 [facility] Comment on above: Performed By: #### V PPCR #### [facility] ([id number]) [address] [address] [place] [address] MAGNESIUMon 09-12-2023 Magnesium [Mass/Vol] 1.9 mg/dL Normal 1.8-2.6 [facility] Comment on above: Performed By: #### V PPCR #### [facility] ([id number]) [address] [address] [place] [address] PHOSPHORUSon 09-12-2023 Phosphate [Mass/Vol] 5.1 mg/dL High 2.4-4.9 [facility] Comment on above: Performed By: #### V PPCR #### [facility] ([id number]) [address] [address] [place] [address] BASIC METABOLIC PANLon 09-10 Anion gap [Moles/Vol] 8 mmol/L Normal 5-15 [facility] Comment on above: Performed By: #### V PPCR #### [facility] ([id number]) [address], [address] [place] [address] Calcium [Mass/Vol] 8.3 mg/dL Low 8.5-10.5 [facility] Comment on above: Performed By: #### V PPCR #### [facility] ([id number]) [address], [address] [place] [address] Chloride [Moles/Vol] 105 mmol/L Normal 98-109 [facility] Comment on above: Performed By: #### V PPCR #### [facility] ([id number]) [address], [address] [place] [address] CO2 [Moles/Vol] 27 mmol/L Normal 22-32 [facility] Comment on above: Performed By: #### V PPCR #### [facility] ([id number]) [address], [address] [place] [address] Creatinine [Mass/Vol] 0.77 mg/dL Normal 0.40-1.00 [facility] Comment on above: Result Comment: METH OD TRACEABLE TO IDMS STANDARD Performed By: #### V PPCR #### [facility] ([id number]) [address], [address] [place] [address] eGFR (CKD-EPI) NON-RACE DEPENDENT >90 Normal >59 [facility] Comment on above: Result Comment: Reported eGFR is based on the CKD-EPI 2020 equation that does not use a race coefficient. Performed By: #### V PPCR #### [facility] ([id number]) [address], [address] [place] [address] Glucose [Mass/Vol] 100 mg/dL High 65-99 [facility] Comment on above: Performed By: #### V PPCR #### [facility] ([id number]) [address], [address] [place] [address] Potassium [Moles/Vol] 3.5 mmol/L Normal 3.5-5.0 [facility] Comment on above: Performed By: #### V PPCR #### [facility] ([id number]) [address], [address] [place] [address] Sodium [Moles/Vol] 140 mmol/L Normal 134-146 [facility] Comment on above: Performed By: #### V PPCR #### [facility] ([id number]) [address], [address] [place] [address] Urea nitrogen [Mass/Vol] 8 mg/dL Normal 5-23 [facility] Comment on above: Performed By: #### V PPCR #### [facility] ([id number]) [address], [address] [place] [address] COMPLETE BLOOD COUNTon 09-10 Erythrocyte distribution width (RBC) [Ratio] 13.3 % Normal 11.5-15.0 [facility] Comment on above: Performed By: #### V PPCR #### [facility] ([id number]) [address], [address] [place] [address] Hematocrit (Bld) [Volume fraction] 31.4 % Low 35-47 [facility] Comment on above: Performed By: #### V PPCR #### [facility] ([id number]) [address] [address] [place] [address] Hemoglobin (Bld) [Mass/Vol] 11.0 g/dL Low 11.7-15.5 [facility] Comment on above: Performed By: #### V PPCR #### [facility] ([id number]) [address], [address] [place] [address] MCH (RBC) [Entitic mass] 30.3 pg Normal 27-34 [facility] Comment on above: Performed By: #### V PPCR #### [facility] ([id number]) [address], [address] [place] [address] MCHC (RBC) [Mass/Vol] 34.9 g/dL Normal 32-36 [facility] Comment on above: Performed By: #### V PPCR #### [facility] ([id number]) [address], [address] [place] [address] MCV (RBC) [Entitic vol] 87 fL Normal 80-100 [facility] Comment on above: Performed By: #### V PPCR #### [facility] ([id number]) [address], [address] [place] [address] Platelet mean volume (Bld) [Entitic vol] 7.3 fL Normal 7-12 [facility] Comment on above: Performed By: #### V PPCR #### [facility] ([id number]) [address], [address] [place] [address] Platelets (Bld) [#/Vol] 275 10*3/uL Normal 150-450 [facility] Comment on above: Performed By: #### V PPCR #### [facility] ([id number]) [address], [address] [place] [address] RBC COUNT 3.62 X10E12/L Low 3.80-5.20 [facility] Comment on above: Performed By: #### V PPCR #### [facility] ([id number]) [address], [address] [place] [address] WBC (Bld) [#/Vol] 9.2 10*3/uL Normal 4.0-11.0 [facility] Comment on above: Performed By: #### V PPCR #### [facility] ([id number]) [address], [address] [place] [address] MAGNESIUMon 09-11-2023 Magnesium [Mass/Vol] 1.9 mg/dL Normal 1.8-2.6 [facility] Comment on above: Performed By: #### V PPCR #### [facility] ([id number]) [address], [address] [place] [address] PHOSPHORUSon 09-11-2023 Phosphate [Mass/Vol] 4.3 mg/dL Normal 2.4-4.9 [facility] Comment on above: Performed By: #### V PPCR #### [facility] ([id number]) [address], [address] [place] [address] ANAEROBE CULTUREon 4 Bacteria identified Anaer cx Nom (Unsp spec) SPECIMEN NOTES SPECIMEN A CULTURE RESULTS MANY MIXED ANAEROBIC GRAM POSITIVE AND ANAEROBIC GRAM NEGATIVE ORGANISMS NO CLOSTRIDIUM PERFRINGENS ISOLATED NO BACTEROIDES FRAGILIS ISOLATED Normal [facility] Comment on above: Performed By: #### 2 106-3 #### [facility] ([id number]) [address] [place] [address] ASPIRATE CULTUREon 4 Bacteria identified Aer cx Nom (Asp) SPECIMEN NOTES SPECIMEN A GRAM STAIN 1 to 9 WHITE BLOOD CELLS/LPF 0 SQUAMOUS EPITHELIAL CELLS/LPF NO ORGANISMS SEEN CULTURE RESULTS NO GROWTH 3 DAYS Normal [facility] Comment on above: Performed By: #### 2 106-3 #### [facility] ([id number]) [address] [place] [address] BASIC METABOLIC PANLon 09-09 Anion gap [Moles/Vol] 8 mmol/L Normal 5-15 [facility] Comment on above: Performed By: #### 2 106-3 #### [facility] ([id number]) [address] [place] [address] Calcium [Mass/Vol] 8.9 mg/dL Normal 8.5-10.5 [facility] Comment on above: Performed By: #### 2 106-3 #### [facility] [place] [facility] ([id number]) [address] [place] [address] Chloride [Moles/Vol] 104 mmol/L Normal 98-109 [facility] Comment on above: Performed By: #### 2 106-3 #### [facility] [place] [facility] ([id number]) [address] [place] [address] CO2 [Moles/Vol] 24 mmol/L Normal 22-32 [facility] Comment on above: Performed By: #### 2 106-3 #### [facility] [place] [facility] ([id number]) [address] [place] [address] Creatinine [Mass/Vol] 0.64 mg/dL Normal 0.40-1.00 [facility] Comment on above: Result Comment: METH OD TRACEABLE TO IDMS STANDARD Performed By: #### 2 106-3 #### [facility] [place] [facility] ([id number]) [address] [place] [address] eGFR (CKD-EPI) NON-RACE DEPENDENT >90 Normal >59 [facility] Comment on above: Result Comment: Reported eGFR is based on the CKD-EPI 1 equation that does not use a race coefficient. Performed By: #### 2 106-3 #### [facility] [place] [facility] ([id number]) [address] [place] [address] Glucose [Mass/Vol] 166 mg/dL High 65-99 [facility] Comment on above: Performed By: #### 2 106-3 #### [facility] [place] [facility] ([id number]) [address] [place] [address] Potassium [Moles/Vol] 3.9 mmol/L Normal 3.5-5.0 [facility] Comment on above: Performed By: #### 2 106-3 #### [facility] [place] [facility] ([id number]) [address] [place] [address] Sodium [Moles/Vol] 136 mmol/L Normal 134-146 [facility] Comment on above: Performed By: #### 2 106-3 #### [facility] [place] [facility] ([id number]) [address] [place] [address] Urea nitrogen [Mass/Vol] 8 mg/dL Normal 5-23 [facility] Comment on above: Performed By: #### 2 106-3 #### [facility] ([id number]) [address] [place] [address] COMPLETE BLOOD COUNT 09-09 Erythrocyte distribution width (RBC) [Ratio] 13.2 % Normal 11.5-15.0 [facility] Comment on above: Performed By: #### 2 106-3 #### [facility] [place] [facility] ([id number]) [address] [place] [address] Hematocrit (Bld) [Volume fraction] 38.9 % Normal 35-47 [facility] Comment on above: Performed By: #### 2 106-3 #### [facility] ([id number]) [address] [place] [address] Hemoglobin (Bld) [Mass/Vol] 13.0 g/dL Normal 11.7-15.5 [facility] Comment on above: Performed By: #### 2 106-3 #### [facility] [place] [facility] ([id number]) [address] [place] [address] MCH (RBC) [Entitic mass] 29.5 pg Normal 27-34 [facility] Comment on above: Performed By: #### 2 106-3 #### [facility] [place] [facility] ([id number]) [address] [place] [address] MCHC (RBC) [Mass/Vol] 33.3 g/dL Normal 32-36 [facility] Comment on above: Performed By: #### 2 106-3 #### [facility] [place] [facility] ([id number]) [address] [place] [address] MCV (RBC) [Entitic vol] 89 fL Normal 80-100 [facility] Comment on above: Performed By: #### 2 106-3 #### [facility] [place] [facility] ([id number]) [address] [place] [address] Platelet mean volume (Bld) [Entitic vol] 7.0 fL Normal 7-12 [facility] Comment on above: Performed By: #### 2 106-3 #### [facility] ([id number]) [address] [place] [address] Platelets (Bld) [#/Vol] 301 10*3/uL Normal 150-450 [facility] Comment on above: Performed By: #### 2 106-3 #### [facility] ([id number]) [address] [place] [address] RBC COUNT 4.40 X10E12/L Normal 3.80-5.20 [facility] Comment on above: Performed By: #### 2 106-3 #### [facility] ([id number]) [address] [place] [address] WBC (Bld) [#/Vol] 13.5 10*3/uL High 4.0-11.0 [facility] Comment on above: Performed By: #### 2 106-3 #### [facility] [place] [facility] ([id number]) [address] [place] [address] FUNGAL CULTUREon 09-10-2023 Fungus identified Cx Nom (Unsp spec) SPECIMEN NOTES SPECIMEN A FUNGAL SMEAR NO FUNGAL ELEMENTS SEEN ON DIRECT SMEAR CULTURE RESULTS NO FUNGUS ISOLATED AFTER 4 WEEKS Normal [facility] Comment on above: Performed By: #### 2 106-3 #### [facility] [place] [facility] ([id number]) [address] [place] [address] MAGNESIUMon 09-10-2023 Magnesium [Mass/Vol] 1.8 mg/dL Normal 1.8-2.6 [facility] Comment on above: Performed By: #### 2 106-3 #### [facility] [place] [facility] ([id number]) [address] [place] [address] PHOSPHORUSon 09-10-2023 Phosphate [Mass/Vol] 3.5 mg/dL Normal 2.4-4.9 [facility] Comment on above: Performed By: #### 2 106-3 #### [facility] [place] [facility] ([id number]) [address] [place] [address] BLOOD CULTUREon 09-09-2023 Bacteria identified Aer cx Nom (Bld) CULTURE RESULTS NO GROWTH 5 DAYS Normal [facility] CBC W Auto Differential pane l (Bld)on 09-09-2023 % MID 3.8 % Normal [facility] Comment on above: Performed By: #### 5 7021-8 #### [facility] [place] [facility] ([id number]) [address] [place] [address] ABSOLUTE MID 0.6 x10E9/L Normal 0.0-0.9 [facility] Comment on above: Performed By: #### 5 7021-8 #### [facility] [place] [facility] ([id number]) [address] [place] [address] Erythrocyte distribution width (RBC) [Ratio] 12.3 % Normal 11.5-15.0 [facility] Comment on above: Performed By: #### 5 7021-8 #### [facility] [place] [facility] ([id number]) [address] [place] [address] Granulocytes (Bld) [#/Vol] 12.1 10*3/uL High 1.5-7.2 [facility] Comment on above: Performed By: #### 5 7021-8 #### [facility] [place] [facility] ([id number]) [address] [place] [address] Granulocytes/100 WBC (Bld) 84.2 % Normal [facility] Comment on above: Performed By: #### 5 7021-8 #### [facility] [place] [facility] ([id number]) [address] [place] [address] Hematocrit (Bld) [Volume fraction] 38.3 % Normal 35-47 [facility] Comment on above: Performed By: #### 5 7021-8 #### [facility] [place] [facility] ([id number]) [address] [place] [address] Hemoglobin (Bld) [Mass/Vol] 13.4 g/dL Normal 11.7-15.5 [facility] Comment on above: Performed By: #### 5 7021-8 #### [facility] [place] [facility] ([id number]) [address] [place] [address] Lymphocytes (Bld) [#/Vol] 1.7 10*3/uL Normal 1.0-3.5 [facility] Comment on above: Performed By: #### 5 7021-8 #### [facility] [place] [facility] ([id number]) [address] [place] [address] Lymphocytes/100 WBC (Bld) 12.0 % Normal [facility] Comment on above: Performed By: #### 5 7021-8 #### [facility] [place] [facility] ([id number]) [address] [place] [address] MCH (RBC) [Entitic mass] 30.2 pg Normal 27-34 [facility] Comment on above: Performed By: #### 5 7021-8 #### [facility] [place] [facility] ([id number]) [address] [place] [address] MCHC (RBC) [Mass/Vol] 34.9 g/dL Normal 32-36 [facility] Comment on above: Performed By: #### 5 7021-8 #### [facility] [place] [facility] ([id number]) [address] [place] [address] MCV (RBC) [Entitic vol] 87 fL Normal 80-100 [facility] Comment on above: Performed By: #### 5 7021-8 #### [facility] [place] [facility] ([id number]) [address] [place] [address] Platelet mean volume (Bld) [Entitic vol] 7.7 fL Normal 7-12 [facility] Comment on above: Performed By: #### 5 7021-8 #### [facility] [place] [facility] ([id number]) [address] [place] [address] Platelets (Bld) [#/Vol] 361 10*3/uL Normal 150-450 [facility] Comment on above: Performed By: #### 5 7021-8 #### [facility] [place] [facility] ([id number]) [address] [place] [address] RBC 4.42 x10E12/L Normal 3.80-5.20 [facility] Comment on above: Performed By: #### 5 7021-8 #### [facility] [place] [facility] ([id number]) [address] [place] [address] WBC (Bld) [#/Vol] 14.4 10*3/uL High 4.0-11.0 [facility] Comment on above: Performed By: #### 5 7021-8 #### [facility] ([id number]) [address] [place] [address] CT PELVIS W CONTon [address] PELVIS W CONT CT PELVIS W CONT History: Suspected perianal abscess or fistula. The mid warmth, and duration) in Exam/Technique: Contrast-enhanced CT of the pelvis Comparison: None Findings: Inflammatory change on the right extends posteriorly and inferiorly from the inferior aspect of the anus into the right buttock at the gluteal cleft. An ovoid collection measures 3.5 x 2.5 x 3.0 cm. Only a small amount of free fluid density in the middle of this is displayed. No other abnormalities displayed. No abnormalities in the portions of bowel loops are included in the appendix appears normal. No abnormalities the urinary bladder, uterus, or ovaries suggested. And IUD is displayed in expected position and orientation. IMPRESSION: Right perianal inflammatory change with a small collection medially in the right buttock. This probably represents phlegmonous inflammatory change, developing abscess without a mature clearly drainable fluid collection as yet. All CT scans at this facility use dose modulation, iterative reconstruction, and/or weight based dosing when appropriate to reduce radiation dose to as low as reasonably achievable. Finalized by Paxton Calle MD on 09/09/2023 4:27 PM Normal [facility] HCG ( test) Ql (U)o n 09-09-2023 Beta HCG ( test) Ql (U) Negative Normal NEG [facility] Comment on above: Performed By: #### 2 106-3 #### [facility] [place] ([id number]) [address] [place] [address] Lactate (Bld) [Moles/Vol]on 09-09-2023 PORTABLE LACTIC ACID 0.87 mmol/L Normal 0.4-2.0 [facility] Comment on above: Performed By: #### 3 2693-4 #### [facility] [place] [facility] ([id number]) [address] [place] [address] POC [id number] 09-09-2023 Chloride [Moles/Vol] 100 mmol/L Normal 98-109 [facility] Comment on above: Performed By: #### I BMP #### [facility] ([id number]) [address] [place] [address] 86102 CO2 [Moles/Vol] 27 mmol/L Normal 22-32 [facility] Comment on above: Performed By: #### I BMP #### [facility] ([id number]) [address] [place] [address] 33552 Creatinine [Mass/Vol] 0.7 mg/dL Normal 0.4-1.0 [facility] Comment on above: Result Comment: METH OD TRACEABLE TO IDMS STANDARD Performed By: #### I BMP #### [facility] ([id number]) [address] [place] [address] 40711 eGFR (CKD-EPI) NON-RACE DEPENDENT >90 Normal >59 [facility] Comment on above: Result Comment: Reported eGFR is based on the CKD-EPI 2020 equation that does not use a race coefficient. Performed By: #### I BMP #### [facility] ([id number]) [address] [place] [address] 72353 Glucose [Mass/Vol] 94 mg/dL Normal 65-99 [facility] Comment on above: Performed By: #### I BMP #### [facility] ([id number]) [address] [place] [address] 88543 PORTABLE ICA 4.6 mg/dL Normal 4.5-5.3 [facility] Comment on above: Performed By: #### I BMP #### [facility] ([id number]) [address] [place] [address] 25440 Potassium [Moles/Vol] 3.7 mmol/L Normal 3.5-5.0 [facility] Comment on above: Performed By: #### I BMP #### [facility] ([id number]) [address] [place] [address] 74867 Sodium [Moles/Vol] 138 mmol/L Normal 134-146 [facility] Comment on above: Performed By: #### I BMP #### [facility] ([id number]) [address] [place] [address] 94888 Urea nitrogen [Mass/Vol] 9 mg/dL Normal 6-23 [facility] Comment on above: Performed By: #### I BMP #### [facility] ([id number]) [address] [place] [address] POC LIVER PANELon 09-09-2023 Albumin [Mass/Vol] 4.1 g/dL Normal 3.3-5.5 [facility] Comment on above: Performed By: #### L IVRWB #### [facility] ([id number]) [address] [place] [address] 76501 ALP [Catalytic activity/Vol] 59 U/L Normal 42-141 [facility] Comment on above: Performed By: #### L IVRWB #### [facility] ([id number]) [address] [place] [address] 54720 ALT [Catalytic activity/Vol] 12 U/L Normal 0-47 [facility] Comment on above: Performed By: #### L IVRWB #### [facility] ([id number]) [address] [place] [address] 42817 Amylase [Catalytic activity/Vol] 21 U/L Normal 14-97 [facility] Comment on above: Performed By: #### L IVRWB #### [facility] ([id number]) [address] [place] [address] 51349 AST [Catalytic activity/Vol] 19 U/L Normal 0-41 [facility] Comment on above: Performed By: #### L IVRWB #### [facility] ([id number]) [address] [place] [address] 36855 Bilirubin [Mass/Vol] 1.0 mg/dL Normal 0.2-1.6 [facility] Comment on above: Performed By: #### L IVRWB #### [facility] ([id number]) [address] [place] [address] 51550 POC GGT 8 U/L Normal 5-65 [facility] Comment on above: Performed By: #### L IVRWB #### [facility] ([id number]) [address] [place] [address] 44982 Protein [Mass/Vol] 7.4 g/dL Normal 6.4-8.1 [facility] Comment on above: Performed By: #### L IVRWB #### [facility] ([id number]) [address] [place] [address] 16847 URN MACROSCOPIC NURon 2023 BILIRUBIN LYDIA Negative Normal NEG [facility] Comment on above: Performed By: #### N UM #### [facility] ([id number]) [address] [place] [address] 97779 BLOOD/HGB LYDIA Trace Abnormal NEG [facility] Comment on above: Performed By: #### N UM #### [facility] ([id number]) [address] [place] [address] 43288 GLUCOSE LYDIA Negative Normal NEG [facility] Comment on above: Performed By: #### N UM #### [facility] ([id number]) [address] [place] [address] 07487 KETONES LYDIA 40 mg/dL Abnormal NEG [facility] Comment on above: Performed By: #### N UM #### [facility] ([id number]) [address] [place] [address] 66904 LEUKOCYTE ESTERASE LYDIA Trace Abnormal NEG [facility] Comment on above: Performed By: #### N UM #### [facility] ([id number]) [address] [place] [address] NITRITE LYDIA Negative Normal NEG [facility] Comment on above: Performed By: #### N UM #### [facility] ([id number]) [address] [place] [address] PH LYDIA 5.5 Normal 5.0-8.5 [facility] Comment on above: Performed By: #### N UM #### [facility] ([id number]) [address] [place] [address] PROTEIN LYDIA Negative Normal NEG [facility] Comment on above: Performed By: #### N UM #### [facility] ([id number]) [address] [place] [address] SPECIFIC GRAVITY LYDIA <=1.005 Normal 1.003-1.035 [facility] Comment on above: Performed By: #### N UM #### [facility] ([id number]) [address] [place] [address] UROBILINOGEN LYDIA 0.2 eu/dL Normal <1.1 [facility] Comment on above: Performed By: #### N UM #### [facility] ([id number]) [address] [place] [address] HCG ( test) Ql (U)o n 09-07-2023 Beta HCG ( test) Ql (U) Negative Normal NEG [facility] Comment on above: Performed By: #### 2 106-3 #### [facility] ([id number]) [address] [place] [address] URINE CULTUREon 09-07-2023 Bacteria identified Cx Nom (U) CULTURE RESULTS 10-50,000 ORGANISMS/mL NORMAL UROGENITAL [place] Normal [facility] Comment on above: Performed By: #### 6 30-4 #### [facility] ([id number]) [address] [place] [address], [address] [place] [address] URN MACROSCOPIC NURon 2023 BILIRUBIN LYDIA Small Abnormal NEG [facility] Comment on above: Performed By: #### N UM #### [facility] ([id number]) [address] [place] [address] 60491 BLOOD/HGB LYDIA Negative Normal NEG [facility] Comment on above: Performed By: #### N UM #### [facility] ([id number]) [address] [place] [address] 80013 GLUCOSE LYDIA Negative Normal NEG [facility] Comment on above: Performed By: #### N UM #### [facility] ([id number]) [address] [place] [address] 65580 KETONES LYDIA Trace Abnormal NEG [facility] Comment on above: Performed By: #### N UM #### [facility] ([id number]) [address] [place] [address] 61157 LEUKOCYTE ESTERASE LYDIA Trace Abnormal NEG [facility] Comment on above: Performed By: #### N UM #### [facility] ([id number]) [address] [place] [address] 57018 NITRITE LYDIA Negative Normal NEG [facility] Comment on above: Performed By: #### N UM #### [facility] ([id number]) [address] [place] [address] 17649 PH LYDIA 5.5 Normal 5.0-8.5 [facility] Comment on above: Performed By: #### N UM #### [facility] ([id number]) [address] [place] [address] 37842 PROTEIN LYDIA Trace Abnormal NEG [facility] Comment on above: Performed By: #### N UM #### [facility] ([id number]) [address] [place] [address] 15730 SPECIFIC GRAVITY LYDIA >=1.030 Normal 1.003-1.035 [facility] Comment on above: Performed By: #### N UM #### [facility] ([id number]) [address] [place] [address] 93674 UROBILINOGEN LYDIA 0.2 eu/dL Normal <1.1 [facility] Comment on above: Performed By: #### N UM #### [facility] ([id number]) [address] [place] [address] VAGINITIS PANEL PCRon 2023 VAGINITIS PANEL PCR BACT. VAGINOSIS DNA Not detected (qualifier value) Qualitative results are reported based on detection and quantitation of targeted organism markers which include: Lactobacillus spp. (L. crispatus and L. jensenii), Gardnerella vaginalis, Atopobium vaginae, Bacterial Vaginosis Associated Bacteria-2 (BVAB-2) and Megasphaera-1 PENNY SPECIES DNA Not detected (qualifier value) Penny species not detected include: C. albicans, C. tropicalis, C. parapsilosis or C. dubliniensis PENNY KRUSEI DNA Not detected (qualifier value) No Penny krusei detected PENNY GLABRATA DNA Not detected (qualifier value) No Penny glabrata detected TRICHOMONAS VAG DNA Not detected (qualifier value) No Trichomonas vaginalis detected NOTE BD MAX Vaginal Panel has not been evaluated for patients under 18 years old. Results for these patients should be reviewed and assessed in accordance with clinical presentation to determine patient diagnosis. Normal [facility] Comment on above: Performed By: #### V PPCR #### [facility] ([id number]) [address], [address] [place] [address] XR CHEST 2 Von 12-10-2018 XR CHEST 2 V Patient: VIVIAN DOWELL Exam Date: 12/10/2018 : 1995 Gender:F Ordering : DR WIL ESCOBAR M.D. Admission #: [id number] Family : Order #: [id number] CLICK HERE TO VIEW EXAM RADIOLOGY REPORT [...] Mendes M.D. on 12/10/2018 at 12:35 Normal [facility] APTTon 06-17-2018 aPTT Coag time (Bld) 27.1 s Normal 21.3-31.3 [facility] Comment on above: Performed By: #### P T, PTT #### [facility] [address] [place] [address] Silverware Etcher: Paxton Lima MD #### PFA #### [place] [id number] Silverware Etcher: Armando Helm MD PTon 06-17-2018 INR Coag RelTime (PPP) 1.0 {INR} Normal [facility] Comment on above: Result Comment: Therapeutic Range: Moderate Anticoagulant Intensity: INR = 2.0-3.0 High Anticoagulant Intensity: INR = 2.5-3.5 Performed By: #### P T, PTT #### [facility] [address] [place] [address] Silverware Etcher: Paxton Lima MD #### PFA #### [place] [id number] Silverware Etcher: Armando Helm MD Prothrombin time (PT) Coag time (PPP) 10.0 s Normal 9.4-12.6 [facility] Comment on above: Performed By: #### P T, PTT #### [facility] [address] [place] [address] 31017 Silverware Etcher: Paxton Lima MD #### PFA #### [address] [phone] Silverware Etcher: Armando Helm MD Platelet Functionon 06-17-19 19 Collagen/ADP 95 sec Normal 67-112 [facility] Comment on above: Performed By: #### P T, PTT #### [facility] [address] [place], [place] [id number] Silverware Etcher: Paxton Lima MD #### PFA #### [place] [id number] Silverware Etcher: Armando Helm MD Collagen/EPI 122 sec Normal 85-172 [facility] Comment on above: Performed By: #### P T, PTT #### [facility] [address] [place], [place] [id number] Silverware Etcher: aPxton Lima MD #### PFA #### [place] [id number] Silverware Etcher: Armando Helm MD Interpretation Normal platelet function. If patient clinical history/Physical examination is Normal [facility] Comment on above: Result Comment: posi tive for a bleeding diathesis, recommend repeat testing and/or additional primary hemostasis and/or coagulation studies. PFA results on patients treated with Plavix (clopidogrel) have not been established. Performed By: #### P T, PTT #### [facility] [address] [place] [address] 43551 Silverware Etcher: Paxton Lima MD #### PFA #### [address] [address] Silverware Etcher: Armando Helm MD CBC with Diffon 03-04-2018 Abs. Basophil 0.04 k/uL Normal 0.00-0.20 [facility] Comment on above: Performed By: #### C DP, GLUF, TSH #### [address] [address] Abs.Imm.Granulocyte 0.04 k/uL Normal 0.00-0.30 [facility] Comment on above: Performed By: #### C DP, GLUF, TSH #### [address] [address] Abs.Neutrophil (Seg) 4.48 k/uL Normal 1.80-8.00 [facility] Comment on above: Performed By: #### C DP, GLUF, TSH #### [facility] [employer] [address] [place] [address] 16539 Basophils/100 WBC (Bld) 1 % Normal 0-2 [facility] Comment on above: Performed By: #### C DP, GLUF, TSH #### [address] [address] Eosinophils #/vol (Bld) 0.15 10*3/uL Normal 0.00-0.44 [facility] Comment on above: Performed By: #### C DP, GLUF, TSH #### [address] [address] Eosinophils/100 WBC (Bld) 2 % Normal 1-4 [facility] Comment on above: Performed By: #### C DP, GLUF, TSH #### [address] [address] Erythrocyte distribution width Ratio (RBC) 13.0 % Normal 11.8-14.4 [facility] Comment on above: Performed By: #### C DP, GLUF, TSH #### [address] [address] Hematocrit Volume Fraction (Bld) 43.0 % Normal 36.3-47.1 [facility] Comment on above: Performed By: #### C DP, GLUF, TSH #### [facility] [employer] [address] [place] [address] 96160 Hemoglobin mass conc (Bld) 13.3 g/dL Normal 11.9-15.1 [facility] Comment on above: Performed By: #### C DP, GLUF, TSH #### [facility] [employer] [address] [place] [address] 79912 Immature granulocytes #/vol (Bld) 1 % High 0 [facility] Comment on above: Performed By: #### C DP, GLUF, TSH #### [facility] [employer] [address] [place] [address] 24138 Lymphocytes #/vol (Bld) 2.07 10*3/uL Normal 1.20-5.20 [facility] Comment on above: Performed By: #### C DP, GLUF, TSH #### [address] [address] Lymphocytes/100 WBC (Bld) 28 % Normal 25-45 [facility] Comment on above: Performed By: #### C DP, GLUF, TSH #### [facility] [employer] [address] [place] [address] 44122 MCH Entitic mass (RBC) 27.8 pg Normal 25.2-33.5 [facility] Comment on above: Performed By: #### C DP, GLUF, TSH #### [facility] [employer] [address] [place] [address] 22827 MCHC mass conc (RBC) 30.9 g/dL Normal 28.4-34.8 [facility] Comment on above: Performed By: #### C DP, GLUF, TSH #### [address] [address] MCV Entitic volume (RBC) 90.0 fL Normal 82.6-102.9 [facility] Comment on above: Performed By: #### C DP, GLUF, TSH #### [address] [address] Monocytes #/vol (Bld) 0.59 10*3/uL Normal 0.10-1.40 [facility] Comment on above: Performed By: #### C DP, GLUF, TSH #### [facility] [employer] [address] [place] [address] 14060 Monocytes/100 WBC (Bld) 8 % Normal 2-8 [facility] Comment on above: Performed By: #### C DP, GLUF, TSH #### [facility] [employer] [address] [place] [address] 94387 Neutrophil (Seg) 60 % Normal 34-64 [facility] Comment on above: Performed By: #### C DP, GLUF, TSH #### [facility] [employer] [address] [place] [address] 86801 NRBC Automated 0.0 per 100 WBC Normal 0.0 [facility] Comment on above: Performed By: #### C DP, GLUF, TSH #### [facility] [employer] [address] [place] [address] 10902 Platelet mean volume Entitic volume (Bld) 9.2 fL Normal 8.1-13.5 [facility] Comment on above: Performed By: #### C DP, GLUF, TSH #### [address] [address] Platelets #/vol (Bld) 342 10*3/uL Normal 138-453 [facility] Comment on above: Performed By: #### C DP, GLUF, TSH #### [facility] [employer] [address] [place] [address] 52667 RBC #/vol (Bld) 4.78 10*6/uL Normal 3.95-5.11 [facility] Comment on above: Performed By: #### C DP, GLUF, TSH #### [facility] [employer] [address] [place] [address] 38782 WBC #/vol (Bld) 7.4 10*3/uL Normal 4.5-13.5 [facility] Comment on above: Performed By: #### C DP, GLUF, TSH #### [facility] [address] [place] [address] 45529 Auto Diff Performed NOT REPORTED Normal [facility] Comment on above: Performed By: #### C DP, GLUF, TSH #### [facility] [employer] [address] [place] [address] 29844 Platelets #/vol (Bld) NOT REPORTED Normal [facility] Comment on above: Performed By: #### C DP, GLUF, TSH #### [facility] [address] [place] [address] 48923 RBC morphology finding Nom (Bld) NOT REPORTED Normal [facility] Comment on above: Performed By: #### C DP, GLUF, TSH #### [facility] [address] [place] [address] 73406 WBC Morphology NOT REPORTED Normal [facility] Comment on above: Performed By: #### C DP, GLUF, TSH #### [facility] [employer] [address] [place] [address] 12967 Glucose, Fastingon 10-24-201 8 Glucose mass conc 85 mg/dL Normal 70-99 [facility] Comment on above: Performed By: #### C DP, GLUF, TSH #### [facility] [address] [place] [address] Thyroid Stim. Horm.on 2017 Thyrotropin Qn 1.56 m[IU]/L Normal 0.30-5.00 [facility] Comment on above: Performed By: #### C DP, GLUF, TSH #### [facility] [employer] [address] [place] [address] Vital Signs Date Time Vital Sign Value Performing Clinician Joeyi litbenjamin 08-13-2023 11:06-0400 Body height 173.99 cm [facility] 08-13-2023 11:06-0400 Body mass index (BMI) [Ratio] 28.8 kg/m2 [facility] 08-13-2023 11:06-0400 Body weight 87.25 kg [facility] 08-13-2023 11:06-0400 Diastolic blood pressure 73 mm[Hg] [facility] 08-13-2023 11:06-0400 Heart rate 101 /min [facility] 08-13-2023 11:06-0400 Respiratory rate 12 /min [facility] 08-13-2023 11:06-0400 Systolic blood pressure 113 mm[Hg] [facility] 05-22-2023 11:15-0500 Body height 173.99 cm [facility] 05-22-2023 11:15-0500 Body weight 89.35 kg [facility] 05-22-2023 11:15-0500 Diastolic blood pressure 91 mm[Hg] [facility] 05-22-2023 11:15-0500 Systolic blood pressure 129 mm[Hg] [facility] Encounters Encounter Date Encounter Type Care Provider Facility Start: 10-30-2023 End: 10-30-2023 Emergency department patient visit KENNEDIIIEDITA DISLA [facility] Start: 10-02-2023 End: 10-02-2023 ambulatory PATI CHANDRA [facility] Start: 09-26-2023 End: 09-26-2023 ambulatory IESHA ROACH [facility] Start: 09-13-2023 End: 09-13-2023 Emergency department patient visit KM ALMAZAN [facility] Start: 09-09-2023 End: 09-13-2023 ambulatory CATRACHITO Hawk STANION [facility] Start: 09-07-2023 End: 09-07-2023 ambulatory NO PCP NO PCP [facility] Start: 08-22-2023 End: 08-22-2023 ambulatory JESSICA MARR Not Available Start: 08-13-2023 End: 08-13-2023 ambulatory [facility] Work Phone: Start: 08-13-2023 End: 08-13-2023 Encounter for general adult medical examination without abnormal findings [facility] Start: 08-13-2023 End: 08-13-2023 Patient encounter procedure [facility] Work Phone: Start: 07-25-2023 End: 07-25-2023 ambulatory NATACHA CASTILLO Not Available Start: 06-05-2023 End: 06-05-2023 ambulatory Pete Cadena Other [employer] Other Start: 06-05-2023 Office outpatient visit 15 minutes Pete Cadena [facility] Start: 06-03-2023 End: 06-03-2023 ambulatory Pete Cadena Other [facility] Other Start: 06-03-2023 Telephone encounter Pete Cadena [facility] Start: 05-22-2023 Patient encounter procedure [facility]- Start: 12-10-2018 End: 12-11-2018 Patient encounter procedure WIL ESCOBAR Facility: Start: 06-17-2018 End: 06-18-2018 Patient encounter procedure PRATIK HARTMAN [facility] Start: 03-04-2018 End: 03-05-2018 Patient encounter procedure PETE CADENA [facility] Procedures Date Procedure Procedure Detail Performing Clinician Start: 09-26-2023 Follow-up visit Follow-up IESHA ROACH Start: 06-17-2018 PLATELET FUNCTION TEST PETE CADENA Start: 06-17-2018 Prothrombin time [facility]ENJAM [facility] [place] Start: 06-17-2018 Thromboplastin time partial plasma/whole blood PETE BALL Start: 03-04-2018 Assay of thyroid sti mulating hormone tsh PETE BALL Start: 03-04-2018 Blood count complete auto&auto difrntl wbc PETE BALL Start: 03-04-2018 GLUCOSE, FASTING EMERALDAM IN [place] Plan of Treatment Date Care Activity Detail Author Adenosine monophosph ate.cyclic [Moles/volume] in Serum or Plasma [facility] Cefuroxime free [Mas s/volume] in Serum or Plasma [facility] enter Comprehensive metabo lic 2000 panel - Serum or Plasma [facility] enter Rheumatoid factor [U nits/volume] in Serum or Plasma [facility] enter XR Lumbar spine Views [facility] Payers Date Payer Category Payer Private Health Insurance [id number] 1995 Unknown [id number] 2.16.8 [id number] 1995 Unknown [id number] 2.16.8 [id number] 1995 Unknown [id number] 2.16.84 0.1.091300.3.579.2.593 1995 Unknown [id number] 2.16.84 0.1.042101.3.579.2.1259 1995 Unknown [id number] 2.16.84 0.1.310243.3.579.2.1259 1995 Unknown [id number] 2.16.8 40.1.252829.3.579.2.1286 1995 Unknown [id number] 2.16.8 40.1.417570.3.579.2.1285 1995 Unknown [id number] 2.16.8 40.1.393601.3.579.2.128 1995 Unknown [id number] 2.16.8 40.1.480579.3.579.2.128 1995 Unknown [id number] 2.16.8 40.1.825228.3.579.2.1286 1995 Unknown [id number] 2.16.8 40.1.454940.3.579.2.1286 1995 Unknown [id number] 2.16.8 40.1.075007.3.579.2.1286 1995 Unknown [id number] 2.16.84 0.1.687153.3.579.2.1276 1957 Private Health Insurance [id number] Private Health Insurance [id number] Social History Date Type Detail Facility Sex Assigned At [facility] Other Start: 1995 Sex Assigned At Female F [facility] Clinical Note 10-30-2023 Note Date & Type Note Facility 10-30-2023 Note Patient Education: Learner: Patient Motivation/Readiness to Learn: High Barriers to Learning: None Learning Preference: Verbal Discharge instructions given. Patient verbalizes understanding of instructions. No further questions. Vivian Kwan discharged to home per ambulation Patient identification verified with all documents, including prescriptions given to the patient:yes What was your final reassessment of pain: -1 = Patient Resting, Eyes Closed Patient received narcotics while in the emergency room. Patient instructed not to drive, operate heavy machinery, or make crucial decisions for the next few hours. Patient confirmed transportation as well as verbalized understanding. [facility] ([facility] Evaluation note 06-05-2023 Note Date & Type [...] and salon pas patch Mobic as needed [facility] Other Evaluation note Note Date & Type Note Facility Evaluation note No Information [facility] Other Evaluation note Note Date & Type Note Facility Evaluation note Diagnosis Onset Date Wellness examination noneact [facility] Work Phone: History general Narrative - Reported Note Date & Type Note Facility History general Narrative - Reported Type Surgical History T/A 2000 Surgical History DIGANOTISC LAP 2018 Surgical History SHOULDER SURGERY Hospitalization History SEE SURGICAL HX [facility] Other Reason for referral (narrative) Note Date & Type Note Facility Reason for referral (narrative) Diagnosis 1 Acute contact otitis externa of right ear (H60.531) Referral Organization [facility] Surinder mock Referring Provider First Name Pete Referring Provider Last Name Surinder Referring Provider Specialty Internal Medicine Referred Organization [facility] Referred Provider StevieJessica dickens Referred Address ,[place], [place],[address] Referred Provider Specialty Ear, Nose an d [...] 06/13/2023 09:56:23 AM >notes locked, referral faxed [facility] Other Summary Purpose Family History No Family History Records Found Relationship Condition Age at Onset Recorded Date/T daryn father Diabetes mellitus Unknown High blood cholesterol Unknown grandparent History of malignant neoplasm of skin Unk nown Malignant neoplasm Unknown Advance Directives No Advanced Directives Records Found Advance Directive Response Recorded Date/ Time Advance Directives No August 12 10:58am Chief Complaint and Reason for Visit Chief Complaint Wellness Reason for Visit Wellness examination Additional Source Comments INFORMATION SOURCE (unrecogn ized section and content) DATE CREATED AUTHOR 07/01/2018 [facility] DATE CREATED AUTHOR AUTHOR'S ORGANIZ ATION 12/19/2018 [facility] DATE CREATED AUTHOR AUTHOR'S ORGANIZ ATION 08/23/2023 [facility] DATE CREATED AUTHOR AUTHOR'S ORGANIZ ATION 10/08/2023 [facility] DATE CREATED AUTHOR AUTHOR'S ORGANIZ ATION 11/01/2023 [facility] REASON FOR VISIT (unrecogniz ed section and content) Referralright ear pain Care Teams (unrecognized sec tion and content) Team Status: Active Member Role Status Dates Pete Cadena DO Primary Care Provider Active Team Status: Active Member Role Status Dates Provider Conversion Attending Provider Active St art: May 22, 2023 Team Status: Inactive Member Role Status Dates Pete Cadena DO Primary Care Provide r, Attending Provider [...] BE BASED ON THE PRIMARY CLINICAL RECORDS. [facility] [employer] [facility]. provides no warranty or guarantee of the accuracy or completeness of information in this document.
== END 2023-11-07 11:08 | disposition home or self-care (01) ==
LOC: US 11:10
PROVIDERS: Family Provider Family Medicine; PCP Internal Medicine; Visit Provider Internal Medicine
DX: R10.11 Right upper quadrant pain (principal)
CPT/HCPCS: 76705